=== PATIENT | female | born 1945 | race Caucasian/White ===

== ENCOUNTER 2017-09-13 12:05 | Inpatient (IN) ==
--- NOTE | 2017-09-12 21:54 | Discharge Summary ---
<Janessa Plascencia - Last Filed: 09/12/17 21:47> Date of Encounter: 09/12/17 - Discharge Diagnosis (1) Arthritis of knee, left Priority: Primary Status: Acute (2) Status post total knee replacement, left Priority: Primary Status: Acute (3) LIZZIE (obstructive sleep apnea) Priority: Secondary Status: Chronic (4) Diabetes Priority: Secondary Status: Chronic Qualifiers: Diabetes mellitus type: type 2 Diabetes mellitus retirement insulin use: unspecified retirement insulin use status Diabetes mellitus complication status : with unspecified complications Qualified Code(s): E11.8 - Type 2 diabetes mellitus with unspecified complications (5) Obesity Priority: Secondary Status: Chronic Qualifiers: Obesity type: unspecified obesity type Obesity classification: unspecified obesity classification Serious obesity comorbidity presence: unspecified whether serious comorbidity present Qualified Code(s): E66.9 - Obesity, unspecified - Hospital Course Hospital course: Ms. Buckley is a 72 year old female - Time Spent with Patient Total time spent providing and/or coordinating discharge services: - Discharge Medications Home Medications: FLUoxetine HCl [Prozac] 40 mg PO DAILY 04/04/15 [History] Insulin Glargine [Lantus] 30 unit SQ QAM 04/04/15 [History] Insulin Glargine [Lantus] 40 unit SQ QPM 04/04/15 [History] Insulin LISPRO [Humalog Kwikpen U-200] 5 unit SQ TID 04/04/15 [History] Cholecalciferol (Vitamin D3) [Vitamin D3] 2,000 unit PO DAILY 04/08/15 [History] Red Yeast Rice [Red Yeast Rice] 600 mg PO DAILY #0 04/08/15 [History] Ubidecarenone [Co Q-10] 10 mg PO DAILY 04/08/15 [History] Aspirin Enteric Coated [Aspirin EC] 325 mg PO BID 10 Days #20 tablet [Rx] OxyCODONE Immed Rel [Roxicodone 5 MG] 5 mg PO Q6HR PRN 7 Days #28 tablet [Rx] Aspirin [Lo-Dose Aspirin EC] 81 mg PO DAILY 09/13/17 [History] Flaxseed Oil [[place]-3 Flaxseed Oil] 1,000 mg PO DAILY 09/13/17 [History] Gluc/Lisandro-MSM#1/C/Jeff/Ethan/Bor [Osteo Bi-Flex Caplet] 1 tab PO DAILY 09/13/17 [ History] Magnesium Oxide [Magnesium] 400 mg PO DAILY 09/13/17 [History] Milk Thistle 500 mg PO DAILY 09/13/17 [History] Psyllium Husk [Daily Fiber] 0.52 gm PO DAILY 09/13/17 [History] Turmeric Root Extract [Turmeric] 500 mg PO DAILY 09/13/17 [History] Vit A/Vit C/Vit E/Zinc/Copper [Preservision Areds Tablet] 1 tab PO DAILY [History] Vitamin B Complex [B Complex] 1 tab PO DAILY 09/13/17 [History] Allergies/Adverse Reactions: 3 Allergy/AdvReac Type Severity Reaction Status Date / Time iodine AdvReac Nausea Verified 09/13/17 13:13 shrimp AdvReac Nausea Verified 09/13/17 13:13 Primary care physician: Maricarmen Espinal CNP - Patient Status Disposition: Home Health Service Condition: Good - Discharge Instructions Follow Up With: Maricarmen Espinal CNP [Primary Care Provider] - <Chris Langley - Last Filed: 09/15/17 07:19> Orders not resulted at time of discharge: Pending orders 09/13/17 00:01 XR knee LT limited 1-2V [XR] Routine H/H [Hemoglobin and Hematocrit] [HEME] Routine 09/13/17 12:22 US anesthesia pain block [US] Routine Date of Encounter: 09/15/17 Time of Encounter: 07:19 - Discharge Diagnosis (1) Morbid obesity with BMI of 45.0-49.9, adult Priority: Secondary Status: Chronic (2) LIZZIE (obstructive sleep apnea) Priority: Secondary Status: Chronic (3) Diabetes Priority: Secondary Status: Chronic Qualifiers: Diabetes mellitus type: type 2 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 Buckley is a 72 year old female Status post left total knee replacement The patient had an uneventful postoperative course. They received antibiotics and physical therapy and were discharged in stable condition. There will follow -up in the office in 2 weeks. - Time Spent with Patient Total time spent providing and/or coordinating discharge services: Primary care physician: Maricarmen Espinal CNP - Patient Status Functional capacity at discharge: uses cane/walker Overall status at discharge: patient is progressing back to baseline
[2017-09-13] MEDS ORDERED: CeFAZolin Syr 2,000MG/20 ML 2,000 MG/20 ML SYRINGE IVPB ONE (12:29)
[2017-09-13] MEDS ORDERED: Ringers Solution, Lactated 1,000 ML IVC SCH ×2 (12:30→17:45)
--- NOTE | 2017-09-13 12:32 | Anesthesia Evaluation PreOp ---
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 Hemorrhoidectomy, TSR,) : No Alcohol Use: none Drug use: none Medications and Allergies FLUoxetine HCl [Prozac] 40 mg PO DAILY 04/04/15 [History] Insulin Glargine [Lantus] 28 unit SQ QAM 04/04/15 [History] Insulin Glargine [Lantus] 38 unit SQ QPM 04/04/15 [History] Insulin LISPRO [Humalog Kwikpen U-200] 5 unit SQ TID 04/04/15 [History] Lisinopril [Zestril] 10 mg PO HS 04/04/15 [History] Cholecalciferol (Vitamin D3) [Vitamin D3] 2,000 unit PO DAILY 04/08/15 [History] Red Yeast Rice 600 mg PO DAILY 04/08/15 [History] Ubidecarenone [Co Q-10] 10 mg PO DAILY 04/08/15 [History] Witch Karoline [Tucks] 1 each TP Q6H #100 med..pad 04/10/17 [Rx] Aspirin Enteric Coated [Aspirin EC] 325 mg PO BID 10 Days #20 tablet. [Rx] OxyCODONE Immed Rel [Roxicodone 5 MG] 5 mg PO Q6HR PRN 7 Days #28 tablet [Rx] 3 Allergy/AdvReac Type Severity Reaction Status Date / Time iodine AdvReac Nausea Verified 09/09/17 11:01 shrimp AdvReac Nausea Verified 09/09/17 11:01 - Meds/Allergy Pre-op Review Medications Reviewed: Yes Allergies Reviewed: Yes Beta Blockers on Current Med List: No Anesthesia Results - Labs Laboratory Tests 09/09/17 09/09/17 09/09/17 11:01 11:01 11:01 WBC 7.1 Hgb 14.1 Hct 42.9 Plt Count 317 INR 1.1 Sodium 136 Potassium 4.2 Chloride 105 Carbon Dioxide 25 BUN 19 Creatinine 0.72 - Imaging EKG: report reviewed (SINUS RHYTHM WITH FIRST DEGREE AV BLOCK) Anesthesia Exam O2 Sat Height 1.52 m Height 1.52 m Height 1.52 m Weight 108.409 kg Weight 108.409 kg Weight 108.409 kg O2 Sat by Pulse Oximetry 99 O2 Sat by Pulse Oximetry 99 Vital Signs Temp Pulse Resp BP Pulse Ox 98.1 F 102 18 141/71 99 09/13/17 12:31 09/13/17 12:31 09/13/17 12:31 09/13/17 12:31 09/13/17 12:31 NPO (# of Hours): > 8 hrs Pain Scale: 0 Pain Scale Used: Numeric (1 - 10) - HEENT Pupil (Motor): Pupils equal, EOMI Mallampati: II Teeth: Missing Denture Type: Upper: Complete Oral Opening: Greater than 3 - CANOE INSPECTOR LOC: Oriented CANOE INSPECTOR Motor: Normal RUE, Normal LUE, Normal RLE, Normal LLE, Normal Face CANOE INSPECTOR Sensory: Normal: RUE, LUE, RLE, LLE, Face - Cardiac Rhythm: Regular Murmur: None JVD: No Carotid Bruit: No - Pulmonary Breath Sounds: bilateral Clear Respiratory Effort: Symmetrical Anesthesia Assess/Plan ASA Score: 3 Modified Blu Scale for Level of Consciousness: Cooperative, oriented, and tranquil Anesthetic Plan: General, Regional (SAB + Fem. Nerve Block) Autologous Blood: Yes Monitoring Plan: Standard Monitors Recovery Plan: PACU
--- NOTE | 2017-09-13 12:50 | History & Physical Report ---
Date of Encounter: 09/13/17 Time of Encounter: 12:50 24 Hour HP Update - Instructions Instructions: If the History and Physical is less than 30 days old and was completed prior to A.M. admission and or procedure and has NOT been updated on calendar day of procedure please complete this update prior to performing procedure. - Update Patient reports changes in Medical Condition: No Changes in examination, assessment, or condition: No Changes in Medication: No Preop tests/diagnostics Reviewed: Yes Surgery Remains Indicated: Yes Consent for Planned Operative Procedure(s) Verified: Yes - Pre-Operative Checklist Preoperative Checklist Indicated: No Prophylactic Antibiotic Ordered: Yes Is VTE Prophylaxis Indicated?: Yes
[2017-09-13] MEDS ORDERED: Ondansetron 4 MG/2 ML VIAL IVP PRN ×2 (13:27→17:45)
[2017-09-13] MEDS ORDERED: *HR* FentaNYL (PF) 100 MCG/2 ML VIAL ONE ×3 (13:29→15:40)
[2017-09-13] MEDS ORDERED: Lidocaine -MPF 2% 2 ML VIAL ONE ×3 (13:29→15:09)
[2017-09-13] MEDS ORDERED: Propofol 500 MG/50 ML INFUS..BTL ONE (13:29)
[2017-09-13] MEDS ORDERED: *HR* Midazolam HCl 2 MG/2 ML VIAL ONE (13:29)
[2017-09-13] MEDS ORDERED: Dexamethasone 4 MG/ML VIAL ONE (13:29)
[2017-09-13] MEDS ORDERED: *HR* Propofol 200 MG/20 ML VIAL IVP ONE (13:29)
[2017-09-13] MEDS ORDERED: Morphine Sulfate/PF 5mg/10mL Vial ONE (13:50)
[2017-09-13] MEDS ORDERED: ROPIVACAINE HCL/PF 0.5% 30 ML VIAL ONE (13:50)
--- NOTE | 2017-09-13 14:08 | Physician Discharge Referral ---
Home Health/Hosp Referral Info Transfer to: Home Health Attending Provider: Provider in Charge Post Discharge: PCP - Diagnosis (1) Arthritis of knee, left Priority: Primary Status: Chronic (2) Status post total knee replacement, left Priority: Primary Status: Acute (3) LIZZIE (obstructive sleep apnea) Priority: Secondary Status: Chronic (4) Diabetes Priority: Secondary Status: Chronic (5) Obesity Priority: Secondary Status: Chronic - Respiratory Orders None Smoking Cessation: Smoking cessation has been advised. For more information, call the [place] Tobacco Quit Line at 3-763-CBAG-NOW. - Diet/Nutrition Diet/Nutrition Orders: Regular - Activity Activity Orders: Up ad britney, Ambulate, Chair, Walker - Services Needed Following services are medically necessary services: Nursing, Home Health Aide, Physical Therapy, Occupational Therapy Home Care Orders: Rehab orders for total knee: Total Knee replacement Precautions x 6 weeks Apply cold therapy wrap 3-6x/day for 20 minutes at a time. Encourage ambulation throughout the day and incentive spirometer 10x/hour. Elevate affected extremity above heart as tolerated. Brace: Wear knee immobilizer at night x 2 weeks. Treatments: Opsite dressing, leave intact until first post-operative visit. If dressing becomes >50% saturated, contact office, remove dressing and place appropriate dressing in its place. Leave Zipline intact. Opsite dressing is water resistant, not water-proof. OK to shower, but do not get dressing wet. Lawrence in place, plan to remove at post-operative day #14-16 - Transfer Medications Prescriptions: OxyCODONE Immed Rel [Roxicodone 5 MG] 5 mg PO Q6HR PRN 7 Days #28 tablet PRN Reason: Severe Pain Aspirin Enteric Coated [Aspirin EC] 325 mg PO BID 10 Days #20 tablet. [place] Medications: FLUoxetine HCl [Prozac] 40 mg PO DAILY 04/04/15 [History] Insulin Glargine [Lantus] 30 unit SQ QAM 04/04/15 [History] Insulin Glargine [Lantus] 40 unit SQ QPM 04/04/15 [History] Insulin LISPRO [Humalog Kwikpen U-200] 5 unit SQ TID 04/04/15 [History] Cholecalciferol (Vitamin D3) [Vitamin D3] 2,000 unit PO DAILY 04/08/15 [History] Red Yeast Rice [Red Yeast Rice] 600 mg PO DAILY #0 04/08/15 [History] Ubidecarenone [Co Q-10] 10 mg PO DAILY 04/08/15 [History] Aspirin Enteric Coated [Aspirin EC] 325 mg PO BID 10 Days #20 tablet. [Rx] OxyCODONE Immed Rel [Roxicodone 5 MG] 5 mg PO Q6HR PRN 7 Days #28 tablet [Rx] Aspirin [Lo-Dose Aspirin EC] 81 mg PO DAILY 09/13/17 [History] Flaxseed Oil [[place]-3 Flaxseed Oil] 1,000 mg PO DAILY 09/13/17 [History] Gluc/Lisandro-MSM#1/C/Jeff/Ethan/Bor [Osteo Bi-Flex Caplet] 1 tab PO DAILY 09/13/17 [ History] Magnesium Oxide [Magnesium] 400 mg PO DAILY 09/13/17 [History] Milk Thistle 500 mg PO DAILY 09/13/17 [History] Psyllium Husk [Daily Fiber] 0.52 gm PO DAILY 09/13/17 [History] Turmeric Root Extract [Turmeric] 500 mg PO DAILY 09/13/17 [History] Vit A/Vit C/Vit E/Zinc/Copper [Preservision Areds Tablet] 1 tab PO DAILY [History] Vitamin B Complex [B Complex] 1 tab PO DAILY 09/13/17 [History] Allergies/Adverse Reactions: 3 Allergy/AdvReac Type Severity Reaction Status Date / Time iodine AdvReac Nausea Verified 09/13/17 13:13 shrimp AdvReac Nausea Verified 09/13/17 13:13 Certification: Further, I certify that my clinical findings support that this patient is homebound (i.e. absences from home require considerable and taxing effort and are for medical reasons or anabaptist services or infrequently or short duration when for other reasons) because: Homebound Reason: Post-surgery restriction and or conditions limit ability to leave home Attestation: My signature below is to certify that this patient is under my care and that I, or nurse practitioner, or a physician's stores assistant working with me, has a face-to -face encounter with this patient.
[2017-09-13] MEDS ORDERED: Ethanol\\Acetic Acid\\Na Ace\\Ben 1,000 ML IRRIG.SOLN IR ONE (14:47)
[2017-09-13] MEDS ORDERED: Bupivacaine/Clonidine Syringe 1 EACH SYRINGE ONE (14:54)
[2017-09-13] MEDS ORDERED: Acetaminophen IV 1,000 MG/100 ML INFUS..BTL ONE (15:44)
--- NOTE | 2017-09-13 15:51 | Anesthesia Procedures ---
Date of Encounter: 09/13/17 Time of Encounter: 15:00 Procedures: Anesthesia - Nerve Block Procedure Date: 09/13/17 Time: 15:00 Surgical Procedure: Left robo tka Checklist: Correct Patient Identifier, Correct procedure, History checked Correct side: Left Blood Thinner: No Monitor Applied: EKG, BP, Pulse Oximetry Supplemental Oxygen via Nasal Cannula (L/min): 2 Sedation: Versed (mg): 2 Sedation: Fentanyl (mcg): 100 Indication: Post Op Analgesia (per dr. cruz) Pre-op Neuro Deficits: No Block Type: Other (adductor canal, ipack) Catheter placed: No Sterile Technique: Yes Ultrasound used: Yes Anatomy identified: Yes Visual spread of Local: Yes Neuro Stimulation: No Blood on Needle Aspiration: No Smooth Injection of Local: Yes Pain with Injection of Local: No Prep: Chlorhexadine Needle: 22 x 50 mm Stimuplex (for ac), 21 x 100 mm Stimuplex (for ipack) Local: 0.25% Bupivicaine w/Clonidine 20 mcg/cc (20cc for ipack), Ropivacaine ( 30cc 0.5% with 10mg decadron for ac) Volume (cc): 30, 20 Number of Attempts: 1 Complications: None/effective block Vitals: Vital Signs/O2 Sat/Glucose, Most Recent Temp Pulse Resp BP Pulse Ox 98.1 F 97 18 161/89 99 09/13/17 12:38 09/13/17 14:27 09/13/17 12:38 09/13/17 14:27 09/13/17 14:27 Blood Glucose* 178 Comments: naac (performed by Jessica Maya CRNA)
[2017-09-13] MEDS ORDERED: *HR* Labetalol 20 MG/4 ML SYRINGE IVP PRN (15:56)
[2017-09-13] MEDS ORDERED: *HR* Morphine 2 MG/ML SYRINGE IVP PRN (15:56)
[2017-09-13] MEDS ORDERED: Dexamethasone 4 MG/ML VIAL IVP ONE (15:56)
[2017-09-13] MEDS ORDERED: *HR* HYDROmorphone (PF) 1 MG/ML SYRINGE IVP PRN (15:56)
[2017-09-13] MEDS ORDERED: Ondansetron 4 MG/2 ML VIAL IVP ONE (15:56)
[2017-09-13] MEDS ORDERED: Ketorolac 30 MG/ML VIAL ONE (16:19)
--- NOTE | 2017-09-13 16:20 | Orthopedic Operative Note ---
Date of procedure: 09/13/17 Pre-op diagnosis: Left knee arthritis Post-op diagnosis: same Procedure: Procedure: Left robotic-assisted Total knee replacement Estimated blood loss: 200 cc Hardware: Metal and polyethylene replacement. [place] Femur: 2 Tibia: 3 TS insert: 9 Patella: 36 Exam Under anesthesia: 9 degree flexion contracture 6 degree varus as calculated by the robot full flexion and no instability Procedural Notes: Grade 3 changes all 3 compartments. Operative procedure: The patient was brought to the operating room and placed on the operating room table. After general anesthesia was administered the operative knee was examined. Findings were noted in the exam under anesthesia. The operative extremity was prepped and draped in sterile surgical fashion. The patient received IV antibiotics prior to skin incision. A standard midline incision was made centered over the patella. The incision was made through the skin and subcutaneous tissue. A medial parapatellar tendon approach was performed. Care was taken to preserve tissue along the medial aspect of the patella. And to protect the patella tendon. The deep MCL was released off the medial tibia. The infra patella fat pad was excised. The patella was everted and cut was made at the level of the insertion of the quadriceps and patella tendon. The patella was sized the guide was seated and the lug holes are drilled. Knee was brought into flexion. Patient noted to have grade 3 changes all 3 compartments. Steinmann pins were placed in the tibia and the femur for the tibial and femoral arrays respectively. Checkpoints were also placed in the tibia and the femur for calculation purposes. The knee including the femur and the tibial registered. Osteophytes, ACL and PCL were excised at this point. Extension and flexion were assessed with a valgus stress components were adjusted on the computer to balance the knee. Femoral cuts were made first with robotic assistance, these included the anterior cut posterior cuts chamfer cuts. Tibial cut was then performed with robotic assistance as well. Bone fragments were removed, as well as the medial and lateral meniscus. The size 2 femoral guide was seated box cut was made lug holes are drilled. The size 3 tibial tray was seated and prepared with the fin cutter. Trial reduction with the 9TS Ronda revealed extension of 0 degree and 2 degree varus full flexion. No varus valgus instability. Trial reduction revealed excellent patella tracking. All trial components were removed all bony surfaces were irrigated. The Tibia was seated followed by the femur, The Ronda size 9 was seated and secured patella. Patient had similar findings for motion and stability. The knee was closed by the PA. The knee was then irrigated out with 2 L of pulse irrigation. The extensor mechanism was closed with #2 FiberWire suture and #2 PDS suture. The subcutaneous tissue was then irrigated and closed deep with #1 PDS suture superficially with 0 PDS suture and skin was closed with zip tie The patient was then placed in a sterile dressing and a postoperative brace extubated and transferred to recovery room in stable condition. Anesthesia: GETA Surgeon: Chris Langley Was there an assistant vice president present: Yes Ekg Monitor Tech: Maria G Robertson Estimated blood loss (cc): 200 Condition: stable Disposition: PACU
[2017-09-13 17:16] LABS: Hematocrit 40.3 % (35.3-44.9); Hemoglobin 13.5 g/dL (11.5-15.4)
--- NOTE | 2017-09-13 17:24 | Anesthesia Evaluation Post Op ---
Date of Encounter: 09/13/17 Time of Encounter: 17:24 - Vital Signs Vital Signs: Vital Signs/O2 Sat, Most Current Temp Pulse Resp BP Pulse Ox 97.3 F L 100 16 151/99 100 09/13/17 16:55 09/13/17 17:15 09/13/17 17:15 09/13/17 17:15 09/13/17 17:15 - Lungs Lungs: Clear Ascult./Percussion - Airway Airway: Non-obstructed - Cardiovascular Regular Rate - Mental Status Mental Status: Alert & Oriented, Answers Appropriately - Pain Pain Scale: 3 Pain Scale used: Numeric (1 - 10) - Nausea Vomiting Nausea Vomiting: Not Present - Hydration Hydration: Ice chips, Has not voided - Discharge PostOp Status: Transfer Patient to floor
[2017-09-13] MEDS ORDERED: MOM Conc 10 ML UD.LIQ PO PRN (17:45)
[2017-09-13] MEDS ORDERED: Sennosides 8.6 MG TABLET PO PRN (17:45)
[2017-09-13] MEDS ORDERED: Dextrose Gel 15 GM/37.5 ML TUBE PO PRN ×2 (17:45)
[2017-09-13] MEDS ORDERED: ceFAZolin 2,000 MG in 0.9 % Sodium Chloride 100 ML IVPB SCH (17:45)
[2017-09-13] MEDS ORDERED: Naloxone 0.4 MG/ML INJ IVP PRN (17:45)
[2017-09-13] MEDS ORDERED: D5% in Water 1,000 ML IVC PRN (17:45)
[2017-09-13] MEDS ORDERED: *HR* Dextrose 50 % in Water (Syg) 50 ML SYRINGE IVP PRN (17:45)
[2017-09-13] MEDS ORDERED: Temazepam 15 MG CAPSULE PO PRN (17:45)
[2017-09-13] MEDS ORDERED: traMADol 50 MG TABLET PO PRN (17:45)
[2017-09-13] MEDS: Insulin LISPRO 300 UNITS/3 ML VIAL SQ SCH ×3 (18:40→20:34)
[2017-09-13] MEDS: Insulin DETEMIR 100 UNIT/ML X5UNITS SQ SCH (20:30)
--- NOTE | 2017-09-13 21:01 | Orthopedics Progress Note ---
Date of Encounter: 09/13/17 Time of Encounter: 21:00 - Assessment and Plan (1) Morbid obesity with BMI of 45.0-49.9, adult Current Visit: Yes Status: Chronic (2) LIZZIE (obstructive sleep apnea) Current Visit: No Status: Chronic (3) Diabetes Current Visit: No Status: Chronic Qualifiers: Diabetes mellitus type: type 2 Diabetes mellitus correction insulin use: unspecified correction insulin use status Diabetes mellitus complication status : with unspecified complications Qualified Code(s): E11.8 - Type 2 diabetes mellitus with unspecified complications (4) Arthritis of knee, left Current Visit: No Status: Chronic (5) Status post total knee replacement, left Current Visit: No Status: Acute Subjective Interval history: patient with active obstructive sleep apnea, diabetes and morbid obesity, patient is unsafe to go home within 23 hours. patient will require ECF postop, patient being converted to Admit for postop safety Objective Vital signs: Vital Signs Temp Pulse Resp BP Pulse Ox 09/13/17 20:00 98.4 F 106 16 147/79 97 09/13/17 18:46 98.4 F 95 14 115/69 98 09/13/17 18:16 98.4 F 96 16 127/75 95 09/13/17 17:59 97 09/13/17 17:44 98.4 F 97 14 134/78 99 09/13/17 17:25 97.3 F L 99 18 150/82 98 09/13/17 17:15 100 16 151/99 100 09/13/17 17:05 100 18 166/90 98 09/13/17 16:55 97.3 F L 98 18 178/82 100 09/13/17 14:27 97 161/89 99 09/13/17 12:38 98.1 F 102 18 141/71 99 09/13/17 12:31 98.1 F 102 18 141/71 99 Intake and Output 09/13/17 09/13/17 09/13/17 07:59 15:59 23:59 Output Total 200 / 200 Balance -200 / -200 Output: Estimated Blood Loss 200 / 200 Other: Weight 108.409 kg Blood Glucose* 178 232 Patient Weight 09/13/17 23:59 Weight 108.409 kg - Labs CBC & BMP: 09/13/17 17:06 Labs: Abnormal lab results POC Glucose 208 mg/dL (70-99) H 09/13/17 18:08 - VTE Documentation of Mechanical Device: Venous foot pump, device Consult Discharge Plan - Plan Referrals: Maricarmen Espinal CNP [Primary Care Provider] - Prescriptions: Aspirin Enteric Coated [Aspirin EC] 325 mg PO BID 10 Days #20 tablet.[address] AlfaroDONLuis Felipe Immed Rel [Roxicodone 5 MG] 5 mg PO Q6HR PRN 7 Days #28 tablet PRN Reason: Severe Pain
[2017-09-13] MEDS: *HR* OxyCODONE Immed Rel 5 MG TABLET PO PRN (22:43)
[2017-09-14] MEDS: ceFAZolin 2,000 MG in 0.9 % Sodium Chloride 100 ML IVPB SCH ×2 (00:15→06:44)
[2017-09-14 01:06] LABS: Hematocrit 36.9 % (35.3-44.9); Hemoglobin 12.5 g/dL (11.5-15.4)
[2017-09-14 01:23] LABS: BUN/Creatinine Ratio 18 (6-26); Blood Urea Nitrogen 16 mg/dL (8-23); Calcium 8.8 mg/dL (8.6-10.3); Carbon Dioxide 26 mEq/L (23-29); Chloride 102 mEq/L (98-107); Glucose 302 mg/dL (70-105); Osmolality,Calculated 290 (280-300); Potassium 4.6 mEq/L (3.5-5.1); Sodium 134 mEq/L (136-145); eGFR For African Americans > 60 (> 60); eGFR For Non-African Americans > 60 (> 60)
--- NOTE | 2017-09-14 06:37 | Orthopedics Progress Note ---
Date of Encounter: 09/14/17 Time of Encounter: 06:37 - Assessment and Plan (1) Morbid obesity with BMI of 45.0-49.9, adult Current Visit: Yes Status: Chronic (2) LIZZIE (obstructive sleep apnea) Current Visit: No Status: Chronic (3) Diabetes Current Visit: No Status: Chronic Qualifiers: Diabetes mellitus type: type 2 Diabetes mellitus mcc insulin use: unspecified mcc insulin use status Diabetes mellitus complication status : with unspecified complications Qualified Code(s): E11.8 - Type 2 diabetes mellitus with unspecified complications (4) Arthritis of knee, left Current Visit: No Status: Chronic (5) Status post total knee replacement, left Current Visit: No Status: Acute Subjective Interval history: Patient was seen this morning doing well without complaints. Afebrile vital signs stable. Operative extremity: Neurovascularly intact Dressing clean dry and intact Calves nontender Assessment and plan: Continue with postoperative care Hematocrit 36 Objective Vital signs: Vital Signs Temp Pulse Resp BP Pulse Ox 09/14/17 06:20 98.4 F 103 18 97/64 96 09/14/17 04:40 98.4 F 101 18 99/71 95 09/13/17 23:02 98.5 F 99 17 121/69 96 09/13/17 22:00 97 09/13/17 20:50 97.6 F 97 17 124/75 97 09/13/17 20:00 98.4 F 106 16 147/79 97 09/13/17 18:46 98.4 F 95 14 115/69 98 09/13/17 18:16 98.4 F 96 16 127/75 95 09/13/17 17:59 97 09/13/17 17:44 98.4 F 97 14 134/78 99 09/13/17 17:25 97.3 F L 99 18 150/82 98 09/13/17 17:15 100 16 151/99 100 09/13/17 17:05 100 18 166/90 98 09/13/17 16:55 97.3 F L 98 18 178/82 100 09/13/17 14:27 97 161/89 99 09/13/17 12:38 98.1 F 102 18 141/71 99 09/13/17 12:31 98.1 F 102 18 141/71 99 Intake and Output 09/13/17 09/13/17 09/14/17 15:59 23:59 07:59 Output Total 200 / 200 450 / 450 Balance -200 / -200 -450 / -450 Output: Urine 450 / 450 Estimated Blood Loss 200 / 200 Other: Weight 108.409 kg Blood Glucose* 178 232 - Labs CBC & BMP: 09/14/17 00:37 09/14/17 00:37 Labs: Abnormal lab results Sodium 134 mEq/L (136-145) L 09/14/17 00:37 Glucose 302 mg/dL (70-105) H 09/14/17 00:37 POC Glucose 208 mg/dL (70-99) H 09/13/17 18:08 - VTE Documentation of Mechanical Device: Venous foot pump, device Consult Discharge Plan - Plan Referrals: Maricarmen Espinal, OUTSIDE DELIVERER [Primary Care Provider] -
[2017-09-14] MEDS: Insulin LISPRO 300 UNITS/3 ML VIAL SQ SCH ×7 (08:16→20:57)
[2017-09-14] MEDS: Vitamin B Complex/Vit C/Vit E 1 EACH TABLET PO SCH (08:18)
[2017-09-14] MEDS: Magnesium Oxide 400 MG TABLET PO SCH (08:18)
[2017-09-14] MEDS: Aspirin Enteric Coated 81 MG Tablet PO SCH (08:18)
[2017-09-14] MEDS: FLUoxetine 20 MG CAPSULE PO SCH (08:18)
[2017-09-14] MEDS: Cholecalciferol (D-3) 1,000 UNIT TABLET PO SCH (08:18)
[2017-09-14] MEDS: Multivit/Ca/Min/Fe/FA 1 TAB TABLET PO SCH (08:18)
[2017-09-14] MEDS: *HR* OxyCODONE/APAP 5/325 TABLET PO PRN ×2 (08:18→21:35)
[2017-09-14] MEDS: Insulin DETEMIR 100 UNIT/ML X5UNITS SQ SCH ×2 (08:18→17:23)
[2017-09-14] MEDS: MILK THISTLE 500 MG PO SCH (08:19)
[2017-09-14] MEDS: Psyllium 1 PACKET POWD.PACK PO SCH (08:19)
[2017-09-14] MEDS: (Ubidecarenone [Co Q-10] 10 MG) PO SCH (08:19)
[2017-09-14] MEDS: (Flaxseed Oil [Omega-3 Flaxseed Oil] 1,000 MG) PO SCH (08:19)
[2017-09-14] MEDS: (Turmeric Root Extract [Turmeric] 500 MG) PO SCH (08:19)
[2017-09-14] MEDS: (Red Yeast Rice [Red Yeast Rice] 600 MG) PO SCH (08:19)
--- NOTE | 2017-09-14 13:44 | Event Note ---
Date of Encounter: 09/14/17 Time of Encounter: 13:40 PCR - POD#1 - LEFT TKR Patient seen at bedside. BLEEDING S/P THERAPY THIS MORNING; WOUND ASSESSED, DAT IN PLACE, NO ACTIVE BLEEDING. OPSITE PLACED. CONTINUE CLOSE MONITORING. Labs reviewed. STABLE LIZZIE ON CPAP Pain control: ADEQUATE Participating in PT. All questions and concerns addressed. Educated on use of incentive spirometer. Encouraged ambulation and proper hydration. Patient educated on post-operative restrictions and post-operative care. Addressed: SEE ABOVE Discharge plan: HOME WITH HOME HEALTH WEDNESDAY
[2017-09-14] MEDS: *HR* Enoxaparin 30 MG/0.3 ML SYRINGE SQ SCH (20:18)
[2017-09-15 01:07] LABS: Hematocrit 32.7 % (35.3-44.9)
[2017-09-15 01:13] LABS: Hemoglobin 10.9 g/dL (11.5-15.4)
[2017-09-15 01:27] LABS: BUN/Creatinine Ratio 30 (6-26); Blood Urea Nitrogen 23 mg/dL (8-23); Carbon Dioxide 30 mEq/L (23-29); Chloride 102 mEq/L (98-107); Glucose 160 mg/dL (70-105); Osmolality,Calculated 291 (280-300); Potassium 4.1 mEq/L (3.5-5.1); Sodium 137 mEq/L (136-145); eGFR For African Americans > 60 (> 60); eGFR For Non-African Americans > 60 (> 60)
[2017-09-15] MEDS: *HR* OxyCODONE/APAP 5/325 TABLET PO PRN (02:54)
[2017-09-15] MEDS: *HR* Enoxaparin 30 MG/0.3 ML SYRINGE SQ SCH (06:13)
[2017-09-15] MEDS: *HR* OxyCODONE Immed Rel 5 MG TABLET PO PRN ×2 (06:13→11:04)
--- NOTE | 2017-09-15 07:20 | Orthopedics Progress Note ---
Date of Encounter: 09/15/17 Time of Encounter: 07:19 - Assessment and Plan (1) Morbid obesity with BMI of 45.0-49.9, adult Current Visit: Yes Status: Chronic (2) LIZZIE (obstructive sleep apnea) Current Visit: No Status: Chronic (3) Diabetes Current Visit: No Status: Chronic Qualifiers: Diabetes mellitus type: type 2 Diabetes mellitus long-term insulin use: unspecified long-term insulin use status Diabetes mellitus complication status : with unspecified complications Qualified Code(s): E11.8 - Type 2 diabetes mellitus with unspecified complications (4) Arthritis of knee, left Current Visit: No Status: Chronic (5) Status post total knee replacement, left Current Visit: No Status: Acute Subjective Interval history: Patient was seen this morning doing well without complaints. Afebrile vital signs stable. Operative extremity: Neurovascularly intact Dressing clean dry and intact Calves nontender Assessment and plan: Continue with postoperative care Hematocrit 32 discharged today Objective Vital signs: Vital Signs Temp Pulse Resp BP Pulse Ox 09/15/17 03:58 97.6 F 92 17 138/85 98 09/15/17 02:43 98.5 F 92 16 120/78 98 09/15/17 00:12 102 16 133/81 99 09/14/17 20:36 95 09/14/17 19:01 97.9 F 109 18 135/68 95 09/14/17 15:14 98.4 F 101 18 123/74 100 09/14/17 11:00 98.2 F 109 18 112/64 99 Intake and Output 09/14/17 09/14/17 09/15/17 15:59 23:59 07:59 Intake Total 600 / 600 200 / 200 0 / 0 Output Total 0 / 0 0 / 0 Balance 600 / 600 200 / 200 0 / 0 Intake: Oral 600 / 600 200 / 200 0 / 0 Output: Urine 0 / 0 0 / 0 Other: Meal Lunch Percent of Meal Consumed 100% # Voids 1 1 1 Blood Glucose* 302 197 - Labs CBC & BMP: 09/15/17 00:48 09/15/17 00:48 Labs: Abnormal lab results Hgb 10.9 g/dL (11.5-15.4) L D 09/15/17 00:48 Hct 32.7 % (35.3-44.9) L 09/15/17 00:48 Carbon Dioxide 30 mEq/L (23-29) H 09/15/17 00:48 BUN/Creatinine Ratio 30 (6-26) H 09/15/17 00:48 Glucose 160 mg/dL (70-105) H 09/15/17 00:48 POC Glucose 197 mg/dL (70-99) H 09/14/17 20:39 - VTE Documentation of Mechanical Device: Venous foot pump, device Consult Discharge Plan - Plan Referrals: Maricarmen Espinal, [employer] [Primary Care Provider] -
[2017-09-15] MEDS: MILK THISTLE 500 MG PO SCH (07:59)
[2017-09-15] MEDS: (Turmeric Root Extract [Turmeric] 500 MG) PO SCH (07:59)
[2017-09-15] MEDS: (Ubidecarenone [Co Q-10] 10 MG) PO SCH (07:59)
[2017-09-15] MEDS: (Red Yeast Rice [Red Yeast Rice] 600 MG) PO SCH (07:59)
[2017-09-15] MEDS: (Flaxseed Oil [Omega-3 Flaxseed Oil] 1,000 MG) PO SCH (07:59)
[2017-09-15] MEDS: Insulin LISPRO 300 UNITS/3 ML VIAL SQ SCH ×2 (08:10)
[2017-09-15] MEDS: Psyllium 1 PACKET POWD.PACK PO SCH (08:10)
[2017-09-15] MEDS: FLUoxetine 20 MG CAPSULE PO SCH (08:11)
[2017-09-15] MEDS: Cholecalciferol (D-3) 1,000 UNIT TABLET PO SCH (08:11)
[2017-09-15] MEDS: Aspirin Enteric Coated 81 MG Tablet PO SCH (08:11)
[2017-09-15] MEDS: Magnesium Oxide 400 MG TABLET PO SCH (08:11)
[2017-09-15] MEDS: Insulin DETEMIR 100 UNIT/ML X5UNITS SQ SCH (08:11)
[2017-09-15] MEDS: Multivit/Ca/Min/Fe/FA 1 TAB TABLET PO SCH (08:11)
[2017-09-15] MEDS: Vitamin B Complex/Vit C/Vit E 1 EACH TABLET PO SCH (08:11)
[2017-09-15 10:18] VITALS: BP 129/81
== END 2017-09-15 11:38 | disposition home health service (06) | DRG 470 ==
LOC: SAMDAY 12:05 → 3NENU 17:31
PROVIDERS: ADMIT Orthopaedic Surgery; ATTEND Orthopaedic Surgery